=== PATIENT | male | born 1975 | race Caucasian/White ===

== ENCOUNTER 2019-04-03 09:17 | Emergency (ER) | payer BC ==
[~2019-04-03] VITALS: Ht 175.3 cm; Wt 84.1 kg
[2019-04-03] MEDS ORDERED: buprenorphine/naloxone 8mg/2mg SL tablet SL STA (10:36)
[2019-04-03] MEDS ORDERED: buprenorphine/naloxone 8MG-2MG SUBlingual film SL STA (10:39)
[2019-04-03] MEDS ORDERED: LORazepam 1 MG tablet PO ONE (10:40)
[2019-04-03] MEDS ORDERED: cloNIDine 0.1 mg tablet PO ONE (10:40)
[2019-04-03] MEDS ORDERED: ONDA4TAB12 PO (11:12)
[2019-04-03] MEDS ORDERED: LORA1TAB PO (11:12)
[2019-04-03 11:41] VITALS: BP 143/79
== END 2019-04-03 12:01 | disposition home or self-care (01) ==
LOC: ER 09:17
DX: F11.23 Opioid dependence with withdrawal (principal); R00.0 Tachycardia, unspecified; G89.29 Other chronic pain; Z79.899 Other long term (current) drug therapy
CPT/HCPCS: 99284

== ENCOUNTER 2022-04-11 12:44 | Emergency (ER) | payer BC ==
[~2022-04-11] VITALS: Ht 175.3 cm; Wt 90.9 kg
[~2022-04-11 12:44] MED LIST: ONDA4TAB12 PO
--- NOTE | 2022-04-11 13:30 | NUR ---
DR Coleman. Addendum: 04/11/22 at [address] coleman at [facility].
[2022-04-11 13:57] LABS: BASOPHILS % (AUTO) 0.3 % (0-1); EOSINOPHILS % (AUTO) 0.1 % (0-6); HEMATOCRIT 46.4 % (42.0-52.0); HEMOGLOBIN 15.9 g/dl (14.0-17.9); LYMPHOCYTES # (AUTO) 0.9 X10'3 (1.1-4.8); LYMPHOCYTES % (AUTO) 7.6 % (21-51); MEAN CORPUSCULAR HEMOGLOBIN 30.1 PG (27.0-31.0); MEAN CORPUSCULAR HGB CONC 34.2 g/dL (33.0-36.5); MEAN CORPUSCULAR VOLUME 88.1 FL (78-98); MEAN PLATELET VOLUME 8.8 FL (7.4-10.4); MONOCYTES # (AUTO) 0.7 X10'3 (0-0.9); MONOCYTES % (AUTO) 5.9 % (2-12); NEUTROPHILS # (AUTO) 10.4 X10'3 (1.8-7.7); NEUTROPHILS % (AUTO) 86.1 % (42-75); PLATELET COUNT 244 X10'3 (140-440); RED BLOOD COUNT 5.27 X10'6 (4.70-6.10); RED CELL DISTRIBUTION WIDTH 13.9 % (11.5-14.5); WHITE BLOOD COUNT 12.1 X10'3 (4.5-11.0)
[2022-04-11 14:19] LABS: ALANINE AMINOTRANSFERASE 24 U/L (12-78); ALBUMIN 4.3 G/DL (3.4-5.0); ALBUMIN/GLOBULIN RATIO 1.5 (1.1-1.5); ALKALINE PHOSPHATASE 75 IU/L (46-116); ANION GAP 8 (8-16); ASPARTATE AMINO TRANSFERASE 21 U/L (10-37); BLOOD UREA NITROGEN 18 MG/DL (7-18); BUN/CREATININE RATIO 16.2 (5.4-32.0); CALCIUM 8.8 MG/DL (8.5-10.1); CHLORIDE 99 MMOL/L (99-107); CREATININE 1.11 MG/DL (0.60-1.10); GLUCOSE 109 MG/DL (70-104); POTASSIUM 3.1 MMOL/L (3.5-5.1); SODIUM 136 MMOL/L (135-145); TOTAL CARBON DIOXIDE 29.1 MMOL/L (24-32); TOTAL PROTEIN 7.2 G/DL (6.4-8.2); eGFR 71 ML/MIN
[2022-04-11] MEDS ORDERED: acetaminophen 325mg tablet PO ONE (14:55)
[2022-04-11] MEDS ORDERED: LIDOcaine 1% W/epiNEPHrine 1:100,000 20ml vial SQ ONE (15:20)
[2022-04-11 15:23] LABS: ETHANOL < 0.010 GM/DL (0.0-0.010)
[2022-04-11] MEDS ORDERED: LIDOcaine 1% w/EPI 1:100,000 30ml vial (MDV) SQ ONE (15:25)
[2022-04-11] MEDS ORDERED: LORazepam 2 mg/ml vial IV ONE (17:00)
[2022-04-11] MEDS ORDERED: ketorolac trometh. 30mg/ml inj. IV ONE (18:45)
[2022-04-11] MEDS ORDERED: CEPH-585 PO (20:07)
[2022-04-11] MEDS ORDERED: cephalexin 500mg capsule PO ONE (20:10)
[2022-04-11 20:28] VITALS: BP 147/75
== END 2022-04-11 20:30 | disposition home or self-care (01) ==
LOC: ER 12:45
DX: S02.121A Fracture of orbital roof, right side, initial encounter for closed fracture (principal); S01.01XA Laceration without foreign body of scalp, initial encounter; G93.89 Other specified disorders of brain; G89.29 Other chronic pain; X58.XXXA Exposure to other specified factors, initial encounter; W19.XXXA Unspecified fall, initial encounter; Y93.89 Activity, other specified; Y92.89 Other specified places as the place of occurrence of the external cause; Y99.8 Other external cause status
CPT/HCPCS: 12001; 36415; 70450; 70486; 71045; 72141; 72148; 80053; 80320; 83880; 84484; 85025; 93005; 96374; 96375; 99285; J1885; J2060; A6449